=== PATIENT | female | born 1990 | race Caucasian/White ===

== ENCOUNTER 2022-02-15 02:25 | Inpatient (IN) | payer MEDICAID, SELFPAY ==
[2022-02-15 02:25] VITALS: BMI 43.9
[2022-02-15 03:34] VITALS: BP 122/74; PULSE 80; RESP 20; TEMP 36.8; O2SAT 96
[2022-02-15 03:41] VITALS: BMI 43.9
[2022-02-15 06:00] VITALS: BP 121/81; PULSE 64; RESP 18; TEMP 36.8; O2SAT 97
--- NOTE | 2022-02-15 06:16 | PC.ADMIT ---
[id number] Admission Note: The patient,Sarah Prado,31 y/o, was given written information regarding hospital policies, unit procedures and contact persons. Patient's smoking status: . Vital Signs - 8 hr 02/15/22 02:25 02/15/22 03:34 Temperature 98.2 F Pulse Rate 80 Respiratory Rate 20 H Blood Pressure 122/74 Pulse Oximetry 96 Oxygen Delivery Method Room Air PT PRESENTS VIA EMS DIRECTLY TO UNIT FROM [facility] [place] OVERDOSE. PER REPORT, PT OVERDOSED ON VRAYLAR, PROZAC, SEROQUEL AND FENTANYL, METHAMPHETAMINE, HEROIN AND MARIJUANA. PT STATES, I WASN'T TRYING TO OVERDOSE, I WAS JUST HIGH PT TEARFUL, WRINGING HANDS AND FIDGETING. POOR EYE CONTACT. PT DENIES SI/HI/AVH AND STATES, I WROTE A NOTE TO MY DAUGHTER SAYING ANNIE HAD TO GO BACK TO REHAB AND WOULDN'T SEE HER IN A WHILE, NOT THAT I WAS TRYING TO KILL MYSELF. PT REPORTS IV AMPHETAMINE USE. PT COOPERATIVE. PT LIVES WITH HER MOTHER WHO IS AN ADDICT, PT CHILDREN AND PT EXHUSBAND FOR COPARENTING PURPOSES. RECENT ADMISSION TO [facility] FOR REHAB WHICH SHE DID NOT COMPLETE BECAUSE I COULDN'T BE AWAY FROM MY BABIES THAT LONG. . PER AFFIDAVIT, PT ADMITTED TO PD THAT SHE TRIED TO OVERDOSE AND LEFT A SUICIDE NOTE FOR HER DAUGHTERS.
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
[2022-02-15] MEDS: lisinopril 10 mg Tablet PO (08:13)
--- NOTE | 2022-02-15 11:11 | PC.NURSE ---
NEW ORDERS THIS RN CONTACTED [facility] TO VERIFY SUBOXONE DOSING AND APT. PTS APT IS February AT 1015. NEW ORDERS RECEIVED TO START SUBOXONE 4/1MG TAKE 2 STR[address] TID. ORDERS PLACED. EDUCATED PT ON NEW ORDERS. ALL QUESTIONS ANSWERED AND SUPPORT VOICED.
[2022-02-15] MEDS: buprenorphine-naloxone 4-1 mg Film 2 EACH SUBLINGUAL ×3 (11:35→21:00)
[2022-02-15] MEDS: nicotine 21 mg Patch 1 PATCH TRANSDERMA (13:37)
[2022-02-15 14:00] VITALS: BP 136/73; PULSE 80; RESP 18; TEMP 36.8; O2SAT 96
[2022-02-15 20:19] VITALS: BP 117/69; PULSE 78; RESP 20; TEMP 36.7; O2SAT 96
[2022-02-15] MEDS: prazosin 1 mg Capsule PO (21:00)
[2022-02-15] MEDS: quetiapine 25 mg Tablet 50 MG PO (21:00)
[2022-02-16 06:00] VITALS: BP 129/81; PULSE 80; RESP 20; TEMP 36.8; O2SAT 95
[2022-02-16] MEDS: lisinopril 10 mg Tablet PO (09:23)
[2022-02-16] MEDS: buprenorphine-naloxone 4-1 mg Film 2 EACH SUBLINGUAL ×3 (09:24→22:03)
--- NOTE | 2022-02-16 12:24 | W.PM.NPUPNS ---
Subjective NPU Subjective: Patient is today with frustrated at the fact that she may not be leaving as quickly as she had hoped. We discussed concerns in the affidavits about her having identified her behavior as an intentional overdose. She continues to deny that representation. She allowed us to discuss it with her ex who she had been messaging. Unfortunately the conversation felt very rehearsed as he was less prepared to answer exact questions and more prepared to share the sentiment that she was pushing which was that he overreacted. She reports that she is doing fine now that she is no longer intoxicated. She is working with the treatment team on getting back into the rehab that she had left a month and a half ago. Mental Status Exam MSE Comments: This is an obese versus morbidly obese white female in hospital scrubs with adequate grooming and eye contact. Blonde hair with pink hair towards the tips and other colors. No abnormal movements except for mild psychomotor agitation. Cooperative with exam in mild to moderate distress. Speech was normal rate and volume. Mood described as okay, affect somewhat annoyed. Thought process, organized. Thought content: patient denies suicidal or homicidal ideation, no delusions reported or noted and denies any auditory or visual hallucinations. Attention and concentration are intact and memory appeared reliable but none were formally tested. She is alert and oriented three times. Insight and judgment are limited. Impulse control is limited. Vitals/I&O/Wt Last Vital Signs Temp 98.3 F 02/16/22 06:00 Pulse 80 02/16/22 06:00 Resp 20 H 02/16/22 06:00 BP 129/81 02/16/22 06:00 Pulse Ox 95 02/16/22 06:00 O2 Del Method 02/15/22 14:00 Weight last 48 hrs Weight 108.862 kg Weight 108.862 kg A&P Assessment and plan (1) PTSD (post-traumatic stress disorder): Status: Acute (2) Opioid use disorder: Status: Acute (3) Methamphetamine use disorder, severe: Status: Acute (4) Borderline personality disorder: Status: Acute Plan This is a 31 year old female with a long history of trauma, mental health and addiction issues and genetic loading for addiction issues who presents secondary to relapsing and concern for a suicide attempt reporting her current medications are helpful when she is not using and open to continuing those medications. 1. Continue current medications 2. Encourage individual, group and milieu therapy 3. Continue q-15 minute check for safety 4. Recommend sober living treatment at the highest level of care to which the patient is willing to commit. 5. continue to gather collateral information in regards to the 96-hour hold. Involuntary Hold Information 96 Hour Hold: 96 Hour Involuntary Admission: Yes 96 Hour Hold Ending Date: 02/21/22 96 Hour Hold Ending Time: 02:20 Attestations NPU Medical Necessity Statement*: Inpatient hospitalization is medically necessary and the clinically appropriate intervention at this time. We will monitor medications and make changes as indicated. Likely length of stay is 2-4 days Coding Level of Care Code Acute Senior Sas Programmer for [facility] Fwd Diagnoses PTSD (post-traumatic stress disorder) F43.10 Opioid use disorder F11.90 Methamphetamine use disorder, severe F15.20 Borderline personality disorder F60.3
[2022-02-16] MEDS: OLANZapine 5 mg ODT PO ×2 (13:39→18:18)
--- NOTE | 2022-02-16 13:41 | PC.NURSE ---
Zydis 5 mg sl given for anxiety rated 10. Patient has anxious affect and is trembling.
[2022-02-16] MEDS: nicotine 2 mg Gum BUCCAL ×2 (13:42→18:18)
--- NOTE | 2022-02-16 13:42 | PC.NURSE ---
Scan is not working. Pharmacy notified.
[2022-02-16 14:00] VITALS: BP 133/69; PULSE 83; RESP 17; TEMP 36.6; O2SAT 96
[2022-02-16 19:50] VITALS: BP 121/63; PULSE 69; RESP 15; TEMP 36.6; O2SAT 91
[2022-02-16] MEDS: prazosin 1 mg Capsule PO (21:59)
[2022-02-16] MEDS: quetiapine 25 mg Tablet 50 MG PO (21:59)
[2022-02-17 06:00] VITALS: BP 132/69; PULSE 79; RESP 16; TEMP 36.6; O2SAT 94
[2022-02-17] MEDS: lisinopril 10 mg Tablet PO (08:22)
[2022-02-17] MEDS: buprenorphine-naloxone 4-1 mg Film 2 EACH SUBLINGUAL ×3 (08:22→20:12)
[2022-02-17] MEDS: OLANZapine 5 mg ODT PO (09:45)
[2022-02-17] MEDS: nicotine 2 mg Gum BUCCAL (09:46)
--- NOTE | 2022-02-17 09:46 | PC.NURSE ---
Patient at the nurses station requesting something for anxiety and nicotine gum. Patient is tearful and has anxious affect. Zydis 5 mg sl given for this.
--- NOTE | 2022-02-17 10:28 | W.PM.NPUPNS ---
Subjective NPU Subjective: Patient presents today with aggravation with this ticket writer continuing to not understanding why I am still here. She is now obtained the support of her family in this endeavor with them following the unit trying to understand why she has been kept. We continue to discuss concerns about her not being willing or able to acknowledge the foundation of how she ended up here which was sending concerning messages about overdosing and then in fact taking an intentional overdose but now she is backtracking saying that it was not intended to be a harmful outcome taking all of those extra pills. Mental Status Exam MSE Comments: This is an obese versus morbidly obese white female in hospital scrubs with adequate grooming and eye contact. Blonde hair with pink hair towards the tips and other colors. No abnormal movements except for mild psychomotor agitation. Cooperative with exam in mild to moderate distress. Speech was normal rate and volume. Mood described as okay, affect irritable. Thought process, organized. Thought content: patient denies suicidal or homicidal ideation, no delusions reported or noted and denies any auditory or visual hallucinations. Attention and concentration are intact and memory appeared reliable but none were formally tested. She is alert and oriented three times. Insight and judgment are limited. Impulse control is limited. Vitals/I&O/Wt Last Vital Signs Temp 98 F 02/17/22 06:00 Pulse 79 02/17/22 06:00 Resp 16 02/17/22 06:00 BP 132/69 02/17/22 06:00 Pulse Ox 94 02/17/22 06:00 O2 Del Method 02/16/22 14:00 A&P Assessment and plan (1) PTSD (post-traumatic stress disorder): Status: Acute (2) Opioid use disorder: Status: Acute (3) Methamphetamine use disorder, severe: Status: Acute (4) Borderline personality disorder: Status: Acute Plan This is a 31 year old female with a long history of trauma, mental health and addiction issues and genetic loading for addiction issues who presents secondary to relapsing and concern for a suicide attempt reporting her current medications are helpful when she is not using and open to continuing those medications. 1. Continue current medications. We will restart the remainder of her medications tomorrow. 2. Encourage individual, group and milieu therapy 3. Continue q-15 minute check for safety 4. Recommend sober living treatment at the highest level of care to which the patient is willing to commit. 5. continue to gather collateral information in regards to the 96-hour hold. Involuntary Hold Information 96 Hour Hold: 96 Hour Involuntary Admission: Yes 96 Hour Hold Ending Date: 02/21/22 96 Hour Hold Ending Time: 02:20 Attestations NPU Medical Necessity Statement*: Inpatient hospitalization is medically necessary and the clinically appropriate intervention at this time. We will monitor medications and make changes as indicated. Likely length of stay is 1-3 days Coding Level of Care Code Acute Employment Educational Coord for [facility] Fwd Diagnoses PTSD (post-traumatic stress disorder) F43.10 Opioid use disorder F11.90 Methamphetamine use disorder, severe F15.20 Borderline personality disorder F60.3
[2022-02-17 14:00] VITALS: BP 162/86; PULSE 88; RESP 16; TEMP 36.8; O2SAT 96
[2022-02-17] MEDS: magnesium hydroxide 30 mL UDC PO (15:10)
--- NOTE | 2022-02-17 15:12 | PC.NURSE ---
Patient with c/o constipation. Given MOM 30 ml po for this.
--- NOTE | 2022-02-17 15:41 | PC.NURSE ---
Patient father here to visit. Patient told [facility] that she doesn't want visitors.
[2022-02-17] MEDS: polyethylene glycol 3350 Pkt 17 gm PO (17:49)
[2022-02-17] MEDS: quetiapine 25 mg Tablet 50 MG PO (20:12)
[2022-02-17] MEDS: prazosin 1 mg Capsule PO (20:12)
[2022-02-17] MEDS: trazodone 50 mg Tablet PO (20:12)
[2022-02-17 20:16] VITALS: BP 142/79; PULSE 84; RESP 20; TEMP 36.9; O2SAT 99
[2022-02-18 06:00] VITALS: BP 155/73; PULSE 86; RESP 18; TEMP 36.8; O2SAT 93
--- NOTE | 2022-02-18 06:37 | P.NPUPN_ITS ---
Subjective NPU Subjective: Patient presents today reporting that she is doing okay. Still expressing some frustration related to still being here but actively working with family to find a rehab considering her recent relapse. We agreed that we should get her other medications restarted now that she is in a few days removed from the overdose. Likely discharge tomorrow but definitely in the next 48 hours. Mental Status Exam MSE Comments: This is an obese versus morbidly obese white female in hospital scrubs with adequate grooming and eye contact. Blonde hair with pink hair towards the tips and other colors. No abnormal movements except for mild psychomotor agitation. Cooperative with exam in no acute distress. Speech was normal rate and volume. Mood described as okay, affect irritable. Thought process, organized. Thought content: patient denies suicidal or homicidal ideation, no delusions reported or noted and denies any auditory or visual hallucinations. Attention and concentration are intact and memory appeared reliable but none were formally tested. She is alert and oriented three times. Insight and judgment are limited. Impulse control is limited. Vitals/I&O/Wt Last Vital Signs Temp 98.4 F 02/17/22 20:16 Pulse 84 02/17/22 20:16 Resp 20 H 02/17/22 20:16 BP 142/79 02/17/22 20:16 Pulse Ox 99 02/17/22 20:16 O2 Del Method 02/16/22 14:00 A&P Assessment and plan (1) PTSD (post-traumatic stress disorder): Status: Acute (2) Opioid use disorder: Status: Acute (3) Methamphetamine use disorder, severe: Status: Acute (4) Borderline personality disorder: Status: Acute Plan This is a 31 year old female with a long history of trauma, mental health and addiction issues and genetic loading for addiction issues who presents secondary to relapsing and concern for a suicide attempt reporting her current medications are helpful when she is not using and open to continuing those medications. 1. Continue current medications. Restart the remainder of her medications tomorrow. 2. Encourage individual, group and milieu therapy 3. Continue q-15 minute check for safety 4. Recommend sober living treatment at the highest level of care to which the patient is willing to commit. 5. continue to gather collateral information in regards to the 96-hour hold. Likely discharge tomorrow hopefully to rehab. Involuntary Hold Information 96 Hour Hold: 96 Hour Involuntary Admission: Yes 96 Hour Hold Ending Date: 02/21/22 96 Hour Hold Ending Time: 02:20 Attestations NPU Medical Necessity Statement*: Inpatient hospitalization is medically necessary and the clinically appropriate intervention at this time. We will monitor medications and make changes as indicated. Likely length of stay is 1-3 days Coding Level of Care Code Acute Solderer Assembler for [facility] Fwd Diagnoses PTSD (post-traumatic stress disorder) F43.10 Opioid use disorder F11.90 Methamphetamine use disorder, severe F15.20 Borderline personality disorder F60.3
[2022-02-18] MEDS: buprenorphine-naloxone 4-1 mg Film 2 EACH SUBLINGUAL ×3 (08:20→20:01)
[2022-02-18] MEDS: lisinopril 10 mg Tablet PO (08:20)
[2022-02-18] MEDS: polyethylene glycol 3350 Pkt 17 gm PO (08:22)
[2022-02-18] MEDS: OLANZapine 5 mg ODT PO ×2 (09:57→16:52)
[2022-02-18] MEDS: nicotine 2 mg Gum BUCCAL ×3 (11:14→20:12)
[2022-02-18 14:00] VITALS: BP 148/103; PULSE 81; RESP 16; TEMP 36.5; O2SAT 96
[2022-02-18] MEDS: hyDROXYzine 25 mg Capsule 50 MG PO (16:52)
[2022-02-18] MEDS: quetiapine 25 mg Tablet 50 MG PO (19:57)
[2022-02-18] MEDS: prazosin 1 mg Capsule PO (19:58)
[2022-02-18 20:01] VITALS: BP 114/67; PULSE 105; RESP 18; TEMP 36.8; O2SAT 95
[2022-02-18] MEDS: trazodone 50 mg Tablet PO (20:12)
[2022-02-19] MEDS: magnesium hydroxide 30 mL UDC PO (05:14)
[2022-02-19 06:00] VITALS: BP 118/77; PULSE 96; RESP 18; TEMP 36.8; O2SAT 94
[2022-02-19] MEDS: hyDROXYzine 25 mg Capsule 50 MG PO (07:22)
[2022-02-19] MEDS: nicotine 2 mg Gum BUCCAL (07:22)
[2022-02-19] MEDS: polyethylene glycol 3350 Pkt 17 gm PO (08:20)
[2022-02-19] MEDS: lisinopril 10 mg Tablet PO (08:20)
[2022-02-19] MEDS: buprenorphine-naloxone 4-1 mg Film 2 EACH SUBLINGUAL (08:20)
[2022-02-19] MEDS: fluoxetine 20 mg Capsule 40 MG PO (10:49)
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
[2022-02-19 12:10] VITALS: BP 118/77; PULSE 96; RESP 18; TEMP 36.8; O2SAT 94
== END 2022-02-19 12:05 | disposition home or self-care (01) | DRG 882 ==
PROVIDERS: Admitting Provider Psychiatry & Neurology Psychiatry; Visit Provider Psychiatry & Neurology Psychiatry
DX: F43.10 Post-traumatic stress disorder, unspecified (principal); F15.20 Other stimulant dependence, uncomplicated; T50.912A Poisoning by multiple unspecified drugs, medicaments and biological substances, intentional self-harm, initial encounter; F60.3 Borderline personality disorder; F11.10 Opioid abuse, uncomplicated; F17.210 Nicotine dependence, cigarettes, uncomplicated; I10 Essential (primary) hypertension; Z91.51 Personal history of suicidal behavior; Z62.810 Personal history of physical and sexual abuse in childhood
CPT/HCPCS: 97150; 97165; J0573